=== PATIENT | female | born 1965 | race Caucasian/White ===

== ENCOUNTER → 2016-11-22 | Outpatient (CLI) | payer OTHER ==
[~2016-11-22] MED LIST: BACTRIM,SEPT1 TABLET PO; CLINDAMYCIN HC300 MG PO; Combivent IH; DILAUDID2 MG PO; FRUITY CHEWS1 EACH PO; KEFLEX500 MG PO; LITE COAT ASPI325 M1 PO; Motrin PO; NAPROSYN500 MG PO; SEROQUEL100 MG PO; SEROquel PO; XANAX2 MG PO; Xanax PO
== END | disposition home or self-care (01) ==
LOC: RES 11-15 11:00
DX: J98.4 Other disorders of lung (principal); R94.2 Abnormal results of pulmonary function studies; R00.0 Tachycardia, unspecified; F17.210 Nicotine dependence, cigarettes, uncomplicated
CPT/HCPCS: 94060; 94726; 94729